=== PATIENT | female | born 1980 | race Caucasian/White ===

== ENCOUNTER 2023-05-09 11:28 | Outpatient (AMB) | payer OTHER, SELFPAY ==
--- NOTE | 2023-05-09 11:27 | AM.OFFWIN_ITS ---
Intake Vital Signs 05/09/23 11:35 Weight 164 lb BP 118/70 Blood Pressure Location Rt brachial Position Sitting Pulse 81 Pulse Source Pulse Oximeter Temp 97.5 F Temp Source Temporal Artery Scan Pulse Oximetry (%) 98 Oxygen Delivery Method Room Air Intake Visit Reasons: EST/wheezing(lobby maskes) Intake Note: pt is here today c/o wheezing, body aches and no appetite since 05/05/23. Patient Tobacco Use Status: Never used Tobacco Allergies No Known Allergies Allergy (Unverified 05/09/23 11:33) Do you need a note to return to daycare/school/sports/work: No HPI EST/wheezing(lobby maskes) HPI Details 42-[facility] of productive cough, intermittent wheezing, body aches, fatigue. 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 Denies fever however has been taking Motrin so is not sure if this has been masking fevers. Denies any history of asthma. Denies shortness of breath. Denies any other sick symptoms. [facility] Social History Patient Tobacco Use Status: Never used Tobacco Review of Systems Const All systems reviewed & are unremarkable except as noted in HPI and below Physical Exam Vital Signs: Last Vital Signs Temp 97.5 F 05/09/23 11:35 Pulse 81 05/09/23 11:35 BP 118/70 05/09/23 11:35 Pulse Ox 98 05/09/23 11:35 Oxygen Delivery Method Room Air 05/09/23 11:35 Const General: cooperative and no acute distress HEENT Head: Yes normal to inspection Ears: hearing grossly normal bilaterally General nose exam: Normal external nose present Face and sinus: Yes normal facial exam Mouth: Normal oral and palatal mucosa present and moist mucous membranes Throat: Yes posterior oropharynx normal Neck Neck: Yes no lymphadenopathy Resp Effort & Inspection: normal respiratory effort, able to speak in complete sentences and Actively coughing Quality: dry Auscultation: wheezes expiratory wheezes and upper bilaterally Cardio Jugular venous distension: no JVD Palpation: normal PMI Rate: regular rate Rhythm: regular rhythm Skin General skin exam: no rashes or lesions noted Extrem General: Yes capillary refill normal and Yes no clubbing, cyanosis or edema Psych Appearance: grossly normal Mental Status: mental status grossly normal Speech and movement: Normal speech and movement present Assessment & Plan Assessment & Plan (1) Upper respiratory tract infection: Code(s): J06.9 - Acute upper respiratory infection, unspecified Qualifiers: URI type: unspecified URI Qualified Code(s): J06.9 - Acute upper respiratory infection, unspecified Plan: 42-year-old female patient presents today with upper respiratory infection. Her LS are clear aside from expiratory wheezing in upper lung burroughs, with productive cough. Covid/Flu/RSV swab obtained. Patient informed she will be notified of results once these are available. I am going to start her on Azithromycin and a short course of prednisone. We reviewed indications, use, possible side effects of medications. She can continue to take Tylenol/Motrin for any pain/body ache/fever. Work note provided. If she does not improve with treatment or if symptoms worsen or new symptoms develop, she should return to the clinic for further evaluation. Patient [place] about a PCP [place] [facility] I advised she stop at the desk prior to discharge to get established with PCP. She agrees to this. Orders: Orders SARS-CoV2/FLU/RSV Today J06.9 - Acute upper respiratory infection, unspecified Medications: New azithromycin For 250 mg dose pack: take 500 mg today (day 1), then 250 mg for 4 days (days 2-5) PO 6 tabs 0RF J06.9 - Acute upper respiratory infection, unspecified prednisone 20 mg PO BID 3 days 6 tabs 0RF J06.9 - Acute upper respiratory infection, unspecified Coding Level of Care Code Est Pt Level 3 (05993) Diagnoses Upper respiratory tract infection, unspecified type J06.9 URI type: unspecified URI
[2023-05-09 11:35] VITALS: BP 118/70; PULSE 81; TEMP 36.4; O2SAT 98
== END 2023-05-09 12:16 | disposition home or self-care (01) ==
PROVIDERS: PCP Internal Medicine; Visit Provider Nurse Practitioner Family
DX: J06.9 Acute upper respiratory infection, unspecified (principal)
CPT/HCPCS: 99213

== ENCOUNTER 2023-05-09 12:07 | Outpatient (REF) | payer OTHER, SELFPAY ==
[2023-05-09 17:24] LABS: Influenza A PCR NEGATIVE (Negative); Influenza B PCR NEGATIVE (Negative); Resp Syncy Virus RNA Qual PCR NEGATIVE (Negative); SARS COV2 PCR INHOUSE NEGATIVE (Negative)
== END 2023-05-09 12:08 | disposition home or self-care (01) ==
LOC: HO.LAB 12:07
PROVIDERS: Visit Provider Nurse Practitioner Family
DX: Z11.52 Encounter for screening for COVID-19 (principal); J06.9 Acute upper respiratory infection, unspecified
CPT/HCPCS: 0241U

== ENCOUNTER 2023-06-06 09:25 | Outpatient (AMB) | payer OTHER, SELFPAY ==
[2023-06-06 09:30] VITALS: BP 104/70; PULSE 89; TEMP 37.7; O2SAT 99; BMI 29.0
--- NOTE | 2023-06-06 09:30 | AM.OFFWIN_ITS ---
Intake Vital Signs 06/06/23 09:30 Height 5 ft 4 in Weight 169 lb BMI 29.0 BP 104/70 Blood Pressure Location Rt brachial Position Sitting Pulse 89 Pulse Source Pulse Oximeter Temp 100 F Temp Source Temporal Artery Scan Pulse Oximetry (%) 99 Oxygen Delivery Method Room Air Intake Visit Reasons: EP chest congestion cough 4 wks Intake Note: Pt is here c/o chest congestion and bad cough for four weeks. Patient Tobacco Use Status: Never used Tobacco Allergies No Known Allergies Allergy (Unverified 06/06/23 10:16) Medication List - Last Reconciled 06/06/23 by Naga Fraga MD azithromycin For 250 mg dose pack: take 500 mg today (day 1), then 250 mg for 4 days (days 2-5) PO No Known Home Meds prednisone 20 mg PO BID 3 days Do you need a note to return to daycare/school/sports/work: No HPI EP chest congestion cough 4 wks HPI Details 42-year-old female presents to the [facility] for a sick visit. For the past month patient has been struggling with sinus congestion, wheezing and postnasal drip. She received a round of antibiotics and prednisone. Symptoms got better only to get worse later. In the past 2 weeks, she is complaining of congestion and wheezing. [facility] Social History Patient Tobacco Use Status: Never used Tobacco Physical Exam Vital Signs: Last Vital Signs Temp 100 F 06/06/23 09:30 Pulse 89 06/06/23 09:30 BP 104/70 06/06/23 09:30 Pulse Ox 99 06/06/23 09:30 Oxygen Delivery Method Room Air 06/06/23 09:30 BMI result Body Mass Index 29.0 Const General: cooperative and healthy appearing Nutritional Appearance: well nourished Orientation/consciousness: patient oriented x3 Limitations: no limitations HEENT Head: Yes normal to inspection Eyes General: appearance normal, both eyes and all related structures Neck Neck: Yes normal visual inspection Chest Chest palpation & inspection: normal palpation of entire chest wall Resp Effort & Inspection: normal respiratory effort Neuro General: patient oriented x3 Assessment & Plan Assessment & Plan (1) Upper respiratory tract infection: Code(s): J06.9 - Acute upper respiratory infection, unspecified Qualifiers: URI type: unspecified URI Qualified Code(s): J06.9 - Acute upper respiratory infection, unspecified Plan: No antibiotics needed. Prednisone and albuterol called in. Note for work given. Chest x-ray did not show any infiltrate. COVID and other viral swab testing done. Orders: Orders XR chest 2V Today R05.9 - Cough, unspecified SARS-CoV2/FLU/RSV Today R43.9 - Unspecified disturbances of smell and taste Coding Level of Care Code Est Pt Level 4 (99192) Diagnoses Upper respiratory tract infection, unspecified type J06.9 URI type: unspecified URI
== END 2023-06-06 10:23 | disposition home or self-care (01) ==
PROVIDERS: PCP Internal Medicine; Visit Provider Internal Medicine
DX: J06.9 Acute upper respiratory infection, unspecified (principal)
CPT/HCPCS: 99214

== ENCOUNTER 2023-06-06 09:50 | Outpatient (REF) | payer OTHER, SELFPAY ==
--- NOTE | ~2023-06-06 | XR_ITS ---
EXAMINATION: XR CHEST CLINICAL INFORMATION: Cough, unspecified COMPARISON: None available. TECHNIQUE: 2 views of the chest were obtained. FINDINGS: No airspace consolidation or vascular congestion observed. Minimal linear atelectatic change observed near the left costophrenic angle. Pulmonary vascularity appears unremarkable. There is blunting of left posterior sulcus and the left costophrenic angle, consistent with a small effusion. No thoracic compression fractures seen. XR/XR chest 2V IMPRESSION: Small left pleural effusion. No airspace consolidation or vascular congestion seen. Minimal linear atelectasis in the left base.
== END 2023-06-06 09:51 | disposition home or self-care (01) ==
LOC: HO.HMGCX 09:50
PROVIDERS: Visit Provider Internal Medicine
DX: R05.9 Cough, unspecified (principal)
CPT/HCPCS: 71046

== ENCOUNTER 2023-06-06 12:36 | Outpatient (REF) | payer OTHER, SELFPAY ==
[2023-06-06 14:24] LABS: Influenza A PCR NEGATIVE (Negative); Influenza B PCR NEGATIVE (Negative); Resp Syncy Virus RNA Qual PCR NEGATIVE (Negative); SARS COV2 PCR INHOUSE NEGATIVE (Negative)
== END 2023-06-06 12:37 | disposition home or self-care (01) ==
LOC: HO.LAB 12:36
PROVIDERS: Visit Provider Internal Medicine
DX: Z11.52 Encounter for screening for COVID-19 (principal); Z20.822 Contact with and (suspected) exposure to COVID-19; R43.9 Unspecified disturbances of smell and taste
CPT/HCPCS: 0241U